=== PATIENT | male | born 1970 | race Hispanic/Latino ===

== ENCOUNTER 2017-08-20 18:37 | Inpatient (IN) | payer OTHER ==
[~2017-08-20] VITALS: Ht 188 cm; Wt 106.6 kg
[2017-08-20] MEDS ORDERED: KETOROLAC TROMETHAMINE 30MG/ML ONE (19:28)
[2017-08-20] MEDS ORDERED: ONDANSETRON HCL 4 MG/2 ML VIAL ONE (19:28)
[2017-08-20] MEDS ORDERED: SODIUM CHLORIDE 0.9% 1000ML 1,000 ML IV ONE (19:28)
[2017-08-20 19:38] LABS: BASOPHILS % (AUTO) 0.5 % (0.0-5.0); EOSINOPHILS % (AUTO) 3.6 % (0.0-8.0); LYMPHOCYTES % (AUTO) 24.6 % (21.0-51.0); MEAN CORPUSCULAR HEMOGLOBIN 27.9 pg (27.0-33.0); MEAN CORPUSCULAR HGB CONC 33.6 g/dL (32.0-36.0); MEAN CORPUSCULAR VOLUME 83.1 fL (79-99); NEUTROPHILS % (AUTO) 65.3 % (40.0-77.0); PLATELET COUNT (AUTO) 269 K/uL (130-400); RED BLOOD CELL COUNT(AUTO) 4.81 MIL/uL (4.50-6.20); RED CELL DISTRIBUTION WIDTH 15.7 % (11.0-15.5); WHITE BLOOD COUNT (AUTO) 9.5 K/uL (4.8-10.8)
[2017-08-20 19:42] LABS: APPEARANCE,URINE Turbid (CLEAR); BILIRUBIN,URINE Negative (NEGATIVE); COLOR,URINE Dark Yellow (YELLOW); GLUCOSE, URINE (UA) TRACE mg/dL (NEGATIVE); KETONES,URINE Trace mg/dL (NEGATIVE); LEUKOCYTE ESTERASE ,URINE Large (NEGATIVE); NITRATE,URINE Negative (NEGATIVE); OCCULT BLOOD,URINE Large (NEGATIVE); PROTEIN,URINE 300 (NEGATIVE)
[2017-08-20 19:46] LABS: CREATININE 1.2 mg/dL (0.5-1.5); POTASSIUM 3.7 mmol/L (3.5-5.1)
[2017-08-20 19:51] LABS: ALBUMIN 2.9 g/dL (3.5-5.0); BILIRUBIN,DIRECT 0.1 mg/dL (0.0-0.3); BILIRUBIN,TOTAL 0.3 mg/dL (0.2-1.0); TOTAL PROTEIN, SERUM 7.2 g/dL (6.0-8.3)
[2017-08-20 20:23] LABS: INR 1.49 (0.85-1.15); PARTIAL THROMBOPLASTIN TIME 30.6 SEC (26.3-35.5); PROTHROMBIN TIME 15.5 SEC (9.6-11.6)
[2017-08-20] MEDS ORDERED: MEROPENEM 1 GM VIAL ONE (20:58)
[2017-08-20 21:06] LABS: BACTERIA,URINE Few /HPF (None Seen); RBC,URINE 51-100 /HPF (0-1); WBC,URINE TNTC /HPF (0-1)
[2017-08-20] MEDS ORDERED: SODIUM CHLORIDE 0.9% 1000ML 1,000 ML IV SCH (23:48)
[2017-08-21] VITALS (28 sets, daily range): BP systolic 92–141; BP diastolic 42–88
[2017-08-21] MEDS ORDERED: ONDANSETRON HCL 4 MG/2 ML VIAL IV PRN
[2017-08-21] MEDS ORDERED: ACETAMINOPHEN 325 MG TAB PO PRN
[2017-08-21] MEDS ORDERED: HYDRALAZINE HCL 20 MG/ML VIAL IV PRN
[2017-08-21] MEDS ORDERED: MORPHINE SULFATE 4 MG/1ML SYG ONE ×2 (00:45→06:21)
[2017-08-21] MEDS ORDERED: MEROPENEM 500 MG VIAL ONE (05:40)
[2017-08-21] MEDS ORDERED: SODIUM CHLORIDE 0.9% 1000ML 1,000 ML IV ONE (05:43)
[2017-08-21] MEDS ORDERED: MEROPENEM 500MG+NS 50ML 50 ML IV SCH (06:00)
[2017-08-21 07:16] LABS: HEMATOCRIT 38.1 % (42-54); MEAN CORPUSCULAR HGB CONC 33.4 g/dL (32.0-36.0); MEAN CORPUSCULAR VOLUME 83.8 fL (79-99); PLATELET COUNT (AUTO) 243 K/uL (130-400); RED BLOOD CELL COUNT(AUTO) 4.55 MIL/uL (4.50-6.20); RED CELL DISTRIBUTION WIDTH 16.2 % (11.0-15.5); WHITE BLOOD COUNT (AUTO) 9.5 K/uL (4.8-10.8)
[2017-08-21] MEDS: INSULIN HUMULIN R 100 UNIT/ML 3ML SQ SCH ×4 (07:30→22:43)
[2017-08-21 07:33] LABS: POTASSIUM 3.7 mmol/L (3.5-5.1)
[2017-08-21] MEDS ORDERED: ISOVUE-370 50ML VIAL IV ONE (09:11)
[2017-08-21] MEDS ORDERED: NEOSTIGMINE METHYLSULFATE 1MG/ML IV ONE (09:50)
[2017-08-21] MEDS ORDERED: ONDANSETRON HCL 4 MG/2 ML VIAL ONE (09:50)
[2017-08-21] MEDS ORDERED: PROPOFOL 10 MG/ML 20ML VIAL IV ONE (09:50)
[2017-08-21] MEDS ORDERED: DEXAMETHASONE SOD PHOSPHATE 10MG/ML 1ML VIAL ONE (09:50)
[2017-08-21] MEDS ORDERED: FENTANYL CITRATE PF 50 MCG/1 ML 2ML VIAL ONE (09:50)
[2017-08-21] MEDS ORDERED: GLYCOPYRROLATE 0.2 MG/ML 5 ML VIAL ONE (09:50)
[2017-08-21] MEDS ORDERED: MIDAZOLAM HCL 1 MG/ML 2ML VIAL ONE (09:50)
[2017-08-21] MEDS ORDERED: SUCCINYLCHOLINE 200MG/10ML SYR ONE (09:50)
[2017-08-21] MEDS: MEROPENEM 1 GM VIAL IVP SCH (10:00)
[2017-08-21] MEDS ORDERED: FENTANYL CITRATE PF 50 MCG/1 ML 5ML AMP IV ONE (10:23)
[2017-08-21] MEDS ORDERED: SODIUM CHLORIDE 0.9% 10 ML VIAL ONE (10:34)
[2017-08-21] MEDS ORDERED: PHENYLEPHRINE HCL 10 MG/ML 1ML VIAL IV ONE (10:34)
[2017-08-21] MEDS ORDERED: KETOROLAC TROMETHAMINE 30MG/ML ONE (11:41)
[2017-08-21] MEDS ORDERED: MEPERIDINE-PF 25 MG/ML SYG ONE (11:42)
[2017-08-21] MEDS: FAMOTIDINE 20MG TAB 20 MG TAB PO SCH ×2 (12:58→20:00)
[2017-08-21] MEDS: LACTATED RINGERS 1000ML 1,000 ML IV SCH ×2 (12:59→22:33)
[2017-08-21] MEDS: MEROPENEM 500 MG VIAL IVP SCH ×2 (13:01→22:33)
[2017-08-21] MEDS ORDERED: SACU1TAB7 PO (13:27)
[2017-08-21] MEDS: MORPHINE SULFATE 2 MG/ML 1ML SYG IV PRN ×2 (15:27→20:03)
[2017-08-21] MEDS: KETOROLAC TROMETHAMINE 30MG/ML IM PRN ×2 (16:23→22:35)
[2017-08-22] MEDS: MORPHINE SULFATE 2 MG/ML 1ML SYG IV PRN ×2 (00:20→06:48)
[2017-08-22 03:55] VITALS: BP 104/64
[2017-08-22] MEDS ORDERED: WATER FOR INJECTION,STERILE 20 ML VIAL ONE (06:44)
[2017-08-22] MEDS: MEROPENEM 500 MG VIAL IVP SCH ×3 (06:48→22:02)
[2017-08-22] MEDS: LACTATED RINGERS 1000ML 1,000 ML IV SCH ×2 (06:49→10:33)
[2017-08-22] MEDS: KETOROLAC TROMETHAMINE 30MG/ML IM PRN (06:53)
[2017-08-22] MEDS: INSULIN HUMULIN R 100 UNIT/ML 3ML SQ SCH ×4 (07:30→20:52)
[2017-08-22 07:37] VITALS: BP 107/63
[2017-08-22] MEDS: MEROPENEM 1 GM VIAL IVP SCH (10:00)
[2017-08-22] MEDS: FAMOTIDINE 20MG TAB 20 MG TAB PO SCH ×2 (10:29→21:55)
[2017-08-22] MEDS ORDERED: LACTULOSE 20 GM/30 ML UDCUP PO PRN (10:45)
[2017-08-22] MEDS: KETOROLAC TROMETHAMINE 30MG/ML IV PRN ×2 (11:29→22:11)
[2017-08-22 11:43] VITALS: BP 123/77
[2017-08-22 17:01] VITALS: BP 127/82
[2017-08-22 20:00] VITALS: BP 122/91
[2017-08-23] VITALS: BP 127/82
[2017-08-23 04:00] VITALS: BP 107/80
[2017-08-23] MEDS ORDERED: WATER FOR INJECTION,STERILE 20 ML VIAL ONE (06:18)
[2017-08-23] MEDS: MEROPENEM 500 MG VIAL IVP SCH ×2 (06:29→14:43)
[2017-08-23] MEDS: INSULIN HUMULIN R 100 UNIT/ML 3ML SQ SCH ×3 (06:29→16:30)
[2017-08-23] MEDS: KETOROLAC TROMETHAMINE 30MG/ML IV PRN ×2 (06:58→14:43)
[2017-08-23 08:44] VITALS: BP 135/75
[2017-08-23] MEDS: MEROPENEM 1 GM VIAL IVP SCH (10:00)
[2017-08-23] MEDS: FAMOTIDINE 20MG TAB 20 MG TAB PO SCH (11:05)
[2017-08-23 11:15] VITALS: BP 131/72
[2017-08-23] MEDS: LACTATED RINGERS 1000ML 1,000 ML IV SCH (14:30)
[2017-08-23 16:11] VITALS: BP 127/82
== END 2017-08-23 18:43 | disposition home or self-care (01) | DRG 690 ==
LOC: EDH 18:37 → EDHIP 18:38 → 4BH 08-21 11:27
PROVIDERS: ADMIT Family Medicine; ATTEND Family Medicine
PROC: 0TP98DZ Removal of Intraluminal Device from Ureter, Via Natural or Artificial Opening Endoscopic (ICD-10-PCS; principal; 2017-08-21 10:00)
PROC: BT1FZZZ Fluoroscopy of Left Kidney, Ureter and Bladder (ICD-10-PCS; 2017-08-21 10:00)
DX: N13.6 Pyonephrosis (principal); E11.65 Type 2 diabetes mellitus with hyperglycemia; I69.351 Hemiplegia and hemiparesis following cerebral infarction affecting right dominant side; N39.0 Urinary tract infection, site not specified; R31.9 Hematuria, unspecified; I10 Essential (primary) hypertension; F17.200 Nicotine dependence, unspecified, uncomplicated; I25.10 Atherosclerotic heart disease of native coronary artery without angina pectoris; K64.9 Unspecified hemorrhoids; Z95.1 Presence of aortocoronary bypass graft; Z87.442 Personal history of urinary calculi; Z28.21 Immunization not carried out because of patient refusal
CPT/HCPCS: 36415; 74176; 74420; 80048; 80076; 81001; 82360; 82948; 85025; 85027; 85610; 85730; 87040; 87088; 87186; 88300; A4218; A4354; C1758; C1769; J0330; J1100; J1815; J1885; J2175; J2185; J2250; J2270; J2370; J2405; J2704; J2710; J3010; J3490; J7030; J7120; Q9967

== ENCOUNTER → 2020-01-29 | Outpatient (CLI) | payer OTHER ==
[~2020-01-29] MED LIST: SACU1TAB7 PO
== END | disposition home or self-care (01) ==
LOC: RAH 08:29
PROVIDERS: ATTEND Urology
DX: N13.2 Hydronephrosis with renal and ureteral calculous obstruction (principal); R31.0 Gross hematuria; J98.11 Atelectasis; N28.1 Cyst of kidney, acquired; K57.30 Diverticulosis of large intestine without perforation or abscess without bleeding; I70.8 Atherosclerosis of other arteries
CPT/HCPCS: 74176